=== PATIENT | female | born 1990 | race Native Hawaiian/Other Pacific Islander ===

== ENCOUNTER 2017-05-12 08:56 | Outpatient (CLI) | payer OTHER | END 2017-05-12 10:00 | disposition home or self-care (01) | LOC: RAD 08:56 | DX: M54.16 Radiculopathy, lumbar region (principal) ==

== ENCOUNTER → 2018-03-10 12:24 | Outpatient (CLI) | payer OTHER ==
[~2018-03-10 12:24] MED LIST: TRAM50TA PO
== END | disposition home or self-care (01) ==
LOC: AMB 12:24
DX: M54.89 Other dorsalgia (principal); V49.9XXA Car occupant (driver) (passenger) injured in unspecified traffic accident, initial encounter

== ENCOUNTER 2018-03-10 12:42 | Emergency (ER) | payer OTHER ==
[~2018-03-10] VITALS: Ht 160 cm; Wt 49.9 kg
[2018-03-10 12:45] VITALS: TEMP 99.3
[2018-03-10 14:04] VITALS: BP 122/64
== END 2018-03-10 14:05 | disposition home or self-care (01) ==
LOC: ED 12:42
DX: S39.012A Strain of muscle, fascia and tendon of lower back, initial encounter (principal); S66.912A Strain of unspecified muscle, fascia and tendon at wrist and hand level, left hand, initial encounter; V89.2XXA Person injured in unspecified motor-vehicle accident, traffic, initial encounter
CPT/HCPCS: 99283